=== PATIENT | female | born 1955 | race Two or more races ===

== ENCOUNTER → 2018-03-12 | Outpatient (CLI) | payer MEDICARE ==
[~2018-03-12] MED LIST: CYANOCOBALAMIN (B-12) 1000 MCG/1 ML VIAL IM ONE; CYANOCOBALAMIN (B-12) 1000 MCG/1 ML VIAL ONE; methylPREDNISolone SOD SUCC 125 MG/2 ML VL IV ONE; methylPREDNISolone SOD SUCC 125 MG/2 ML VL ONE
[2018-03-12 10:15] VITALS: BP 138/92
[2018-03-12 11:20] VITALS: BP 154/91
[2018-03-12 12:37] LABS: Basophils # (auto) 0 uL; Basophils % (auto) 0.2 % (0.0-2.0); Eosinophils # (auto) 0 uL; Eosinophils % (auto) 0.4 % (0.0-7.0); Hematocrit 39.1 % (36.0-46.0); Hemoglobin 12.6 g/dL (12.2-16.2); Lymphocytes # (auto) 0.9 uL; Lymphocytes % (auto) 9.8 % (10.0-50.0); Mean Corpuscular Hemoglobin 28.5 pg (28.0-32.0); Mean Corpuscular Hgb Conc. 32.2 g/dL (32.0-36.0); Mean Corpuscular Volume 88.5 fL (80.0-100.0); Monocytes # (auto) 0.6 uL; Monocytes % (auto) 6.5 % (0.0-12.0); Neutrophils # (auto) 7.9 uL; Neutrophils % (auto) 83.1 % (37.0-80.0); Platelet Count (auto) 365 10^3/uL (140-450); Red Blood Cells 4.42 10^6/uL (4.0-5.20); Red Cell Distribution Width 14.4 % (11.8-14.3); White Blood Cell 9.5 10^3/uL (4.4-10.8)
[2018-03-12 13:13] LABS: Albumin 3.5 g/dL (3.4-5.0); Calcium 8.8 mg/dL (8.5-10.1); Magnesium 2.2 mg/dL (1.6-2.6); Potassium 4.3 mmol/L (3.5-5.1)
[2018-03-12 13:14] LABS: BUN/Creatinine Ratio 27.3
[2018-03-12 13:18] LABS: Bilirubin, Total 0.5 mg/dL (0.2-1.0); Total Protein 7.2 g/dL (6.4-8.2)
== END | disposition home or self-care (01) ==
LOC: CHF HDHVI 10:19
PROVIDERS: ATTEND Internal Medicine Cardiovascular Disease
DX: J44.9 Chronic obstructive pulmonary disease, unspecified (principal); R06.02 Shortness of breath; I10 Essential (primary) hypertension; J45.909 Unspecified asthma, uncomplicated; R53.83 Other fatigue; E55.9 Vitamin D deficiency, unspecified
CPT/HCPCS: 36415; 71046; 80053; 82306; 83735; 85025; 96372; 96374; G0463; J2930; J3420

== ENCOUNTER → 2018-04-04 | Outpatient (CLI) | payer MEDICARE ==
[2018-04-04 12:46] LABS: BUN/Creatinine Ratio 25.6; Potassium 4.2 mmol/L (3.5-5.1)
== END | disposition home or self-care (01) ==
LOC: LAB 08:56
PROVIDERS: ATTEND Internal Medicine
DX: K29.70 Gastritis, unspecified, without bleeding (principal); I10 Essential (primary) hypertension; J44.9 Chronic obstructive pulmonary disease, unspecified; E78.00 Pure hypercholesterolemia, unspecified; E11.9 Type 2 diabetes mellitus without complications; E03.9 Hypothyroidism, unspecified
CPT/HCPCS: 36415; 80048

== ENCOUNTER → 2018-11-13 | Outpatient (CLI) | payer MEDICARE | END | disposition home or self-care (01) | LOC: LAB 08:48 | PROVIDERS: ATTEND Internal Medicine Cardiovascular Disease | DX: E03.9 Hypothyroidism, unspecified (principal) | CPT/HCPCS: 36415; 84439; 84443 ==

== ENCOUNTER → 2019-01-13 | Outpatient (CLI) | payer MEDICARE ==
[2019-01-13 16:14] LABS: Urine Blood Negative /uL (Negative); Urine Specific Gravity 1.009 (1.001-1.035)
== END | disposition home or self-care (01) ==
LOC: LAB 11:48
PROVIDERS: ATTEND Internal Medicine Cardiovascular Disease
DX: N39.0 Urinary tract infection, site not specified (principal)
CPT/HCPCS: 81003; 87086

== ENCOUNTER → 2019-02-03 | Outpatient (CLI) | payer MEDICARE ==
[~2019-02-03] MED LIST changes: -CYANOCOBALAMIN (B-12) 1000 MCG/1 ML VIAL IM ONE; -CYANOCOBALAMIN (B-12) 1000 MCG/1 ML VIAL ONE; +IOHEXOL 350 MG/ML 100ML IJ ONE; -methylPREDNISolone SOD SUCC 125 MG/2 ML VL IV ONE; -methylPREDNISolone SOD SUCC 125 MG/2 ML VL ONE
--- NOTE | 2019-02-03 14:11 | NUR ---
PT. TO CLINIC WITH C/O SOB THAT HAS NOT SUBSIDED ALL DAY. PT. SAW DR. MARCOS THIS AM AT 0900 WITH NEW INSTRUCTIONS FOR PT. REFERRAL AND DIAGNOSTIC PROCEDURES. PT. APPEARS ANXIOUS AND TEARFUL. AOX4, PWD WITH NO ACUTE DISTRESS.
[2019-02-03 14:15] VITALS: BP 128/84
--- NOTE | 2019-02-03 14:25 | NUR ---
IV insertion IV access obtained, via clean sterile technique by inserting 20 gauge catheter at after attempt(s). IV secured properly. No trauma to site. Patient tolerated procedure well.LABS SENT.
--- NOTE | 2019-02-03 14:55 | NUR ---
PT. TO AND FROM CT. TOLERATED PROCEDURE WELL. PT. STAES SHE IS FEELING MUCH BETTER. " I THINK I WAS HAVING A PANIC ATTACK" REASSURANCE GIVEN TO PT.
[2019-02-03 15:16] LABS: Basophils # (auto) 0 uL; Basophils % (auto) 0.2 % (0.0-2.0); Eosinophils # (auto) 0 uL; Hemoglobin 12.6 g/dL (12.2-16.2); Lymphocytes # (auto) 0.9 uL; Mean Corpuscular Hemoglobin 28.6 pg (28.0-32.0); Mean Corpuscular Hgb Conc. 32.3 g/dL (32.0-36.0); Mean Corpuscular Volume 88.6 fL (80.0-100.0); Monocytes # (auto) 0.5 uL; Monocytes % (auto) 4.4 % (0.0-12.0); Neutrophils # (auto) 10.3 uL; Neutrophils % (auto) 87.4 % (37.0-80.0); Platelet Count (auto) 398 10^3/uL (140-450); Red Cell Distribution Width 13.7 % (11.8-14.3); White Blood Cell 11.8 10^3/uL (4.4-10.8)
[2019-02-03 15:32] LABS: Calcium 9.1 mg/dL (8.5-10.1); Magnesium 2.4 mg/dL (1.6-2.6)
[2019-02-03 15:47] VITALS: BP 125/83
--- NOTE | 2019-02-03 15:47 | NUR ---
IV removal IV DC'd with sterile technique, catheter fully intact. Pressure dressing applied to site. Patient tolerated procedure well. Discharged with aftercare instructions per MD. NOTE: PT. HAS FOLLOW UP APPT. SUNDAY MORNING WITH DR. MARCOS. EBONI AT TIME OF DISCHARGE. ENCOURAGED PT. TO INCREASE WATER INTAKE FOR NEXT 24 HRS.
== END | disposition home or self-care (01) ==
LOC: CHF HDHVI 14:16
PROVIDERS: ATTEND Internal Medicine Cardiovascular Disease
DX: I70.0 Atherosclerosis of aorta (principal); J84.10 Pulmonary fibrosis, unspecified; E55.9 Vitamin D deficiency, unspecified; D64.9 Anemia, unspecified; I10 Essential (primary) hypertension; M79.7 Fibromyalgia
CPT/HCPCS: 36415; 71260; 80048; 82306; 83735; 85025; G0463; Q9967

== ENCOUNTER → 2019-04-17 | Outpatient (CLI) | payer MEDICARE ==
[2019-04-17 11:58] LABS: Urine Blood TRACE /uL (Negative); Urine Specific Gravity 1.012 (1.001-1.035)
== END | disposition home or self-care (01) ==
LOC: LAB 09:18
PROVIDERS: ATTEND Internal Medicine
DX: N39.0 Urinary tract infection, site not specified (principal)
CPT/HCPCS: 81003

== ENCOUNTER → 2019-05-19 | Outpatient (CLI) | payer MEDICARE ==
[2019-05-19 12:42] LABS: Basophils # (auto) 0 uL; Basophils % (auto) 0.5 % (0.0-2.0); Eosinophils # (auto) 0.1 uL; Eosinophils % (auto) 1.6 % (0.0-7.0); Hematocrit 39.9 % (36.0-46.0); Lymphocytes # (auto) 1.2 uL; Lymphocytes % (auto) 21.4 % (10.0-50.0); Mean Corpuscular Hemoglobin 28.9 pg (28.0-32.0); Mean Corpuscular Hgb Conc. 32.5 g/dL (32.0-36.0); Mean Corpuscular Volume 88.9 fL (80.0-100.0); Monocytes # (auto) 0.5 uL; Monocytes % (auto) 9.5 % (0.0-12.0); Neutrophils # (auto) 3.8 uL; Nucleated Red Blood Cells % 0.2 %; Platelet Count (auto) 353 10^3/uL (140-450); Red Blood Cells 4.49 10^6/uL (4.0-5.20); Red Cell Distribution Width 13.7 % (11.8-14.3); Urine Blood Negative /uL (Negative); Urine Specific Gravity 1.017 (1.001-1.035); White Blood Cell 5.7 10^3/uL (4.4-10.8)
[2019-05-19 13:12] LABS: Potassium 4.2 mmol/L (3.5-5.1)
[2019-05-19 13:14] LABS: Free T4 (Free Thyroxine) 0.97 ng/dL (0.89-1.76)
[2019-05-19 13:29] LABS: Albumin 3.7 g/dL (3.4-5.0); BUN/Creatinine Ratio 20.8; Bilirubin, Total 0.5 mg/dL (0.2-1.0); Calcium 9.7 mg/dL (8.5-10.1)
== END | disposition home or self-care (01) ==
LOC: LAB 08:20
PROVIDERS: ATTEND Internal Medicine
DX: E03.9 Hypothyroidism, unspecified (principal); E55.9 Vitamin D deficiency, unspecified; D51.9 Vitamin B12 deficiency anemia, unspecified; N39.0 Urinary tract infection, site not specified; Z79.899 Other long term (current) drug therapy
CPT/HCPCS: 36415; 80053; 80061; 81003; 82306; 82607; 83036; 84439; 84443; 85025

== ENCOUNTER → 2020-03-15 | Outpatient (CLI) | payer MEDICARE ==
[~2020-03-15] MED LIST changes: +READI-CAT 2 (BARIUM SULF)(VANILLA SMOOTHIE) 450ML ONE
--- NOTE | 2020-03-15 12:10 | NUR ---
PT. TO CLINIC FOR CT ABD PELVIS PER MD ORDER FROM BACK OFFICE. AOX4, PWD.
[2020-03-15 12:15] VITALS: BP 123/74
--- NOTE | 2020-03-15 12:20 | NUR ---
IV insertion IV access obtained, via clean sterile technique by inserting 22G gauge catheter at after attempt(s). IV secured properly. No trauma to site. Patient tolerated procedure well. STAT CREAT. SENT. ADDITIONAL LABS SENT PER MD ORDER.
--- NOTE | 2020-03-15 13:15 | NUR ---
PT. RESTING WITH NO C/O. PENDING STAT LAB RESULTS.
--- NOTE | 2020-03-15 13:30 | NUR ---
PT. AMBULATED TO AND FROM CT. TOLERATED PROCEDURE WELL.
[2020-03-15 13:50] VITALS: BP 128/76
--- NOTE | 2020-03-15 13:50 | NUR ---
IV removal IV DC'd with sterile technique, catheter fully intact. Pressure dressing applied to site. Patient tolerated procedure well. Discharged with aftercare instructions per MD. NOTE: PT. INSTRUCTED TO INCREASE WATER INTAKE FOR NEXT 24 HRS.
[2020-03-15 14:49] LABS: Urine WBC None Seen /hpf (0 - 5)
[2020-03-15 16:06] LABS: Basophils # (auto) 0 10 ^3/uL (0-0.2); Basophils % (auto) 0.5 % (0.0-2.0); Eosinophils # (auto) 0.1 10 ^3/uL (0-0.8); Eosinophils % (auto) 1.7 % (0.0-7.0); Hematocrit 40.2 % (36.0-46.0); Hemoglobin 12.9 g/dL (12.2-16.2); Lymphocytes # (auto) 1.6 10 ^3/uL (0.4-5.4); Lymphocytes % (auto) 20.4 % (10.0-50.0); Mean Corpuscular Hemoglobin 28.2 pg (28.0-32.0); Mean Corpuscular Volume 88.3 fL (80.0-100.0); Monocytes # (auto) 0.8 10 ^3/uL (0-1.3); Monocytes % (auto) 10.7 % (0.0-12.0); Neutrophils # (auto) 5.1 10 ^3/uL (1.6-8.6); Neutrophils % (auto) 66.7 % (37.0-80.0); Nucleated Red Blood Cells % 0.1 %; Platelet Count (auto) 381 10^3/uL (140-450); Red Blood Cells 4.55 10^6/uL (4.0-5.20); Red Cell Distribution Width 13.2 % (11.8-14.3); White Blood Cell 7.7 10^3/uL (4.4-10.8)
[2020-03-15 16:08] LABS: Urine Bacteria NONE SEEN /hpf (None Seen); Urine Blood Negative /uL (Negative); Urine Specific Gravity 1.008 (1.001-1.035)
[2020-03-15 16:20] LABS: Albumin 3.7 g/dL (3.4-5.0); Calcium 9.2 mg/dL (8.5-10.1); Potassium 3.3 mmol/L (3.5-5.1)
[2020-03-15 16:25] LABS: BUN/Creatinine Ratio 23.6; Bilirubin, Total 0.2 mg/dL (0.2-1.0); Total Protein 7.5 g/dL (6.4-8.2)
== END | disposition home or self-care (01) ==
LOC: Rad HDHVI 12:03
PROVIDERS: ATTEND Internal Medicine
DX: S22.089A Unspecified fracture of T11-T12 vertebra, initial encounter for closed fracture (principal); R94.4 Abnormal results of kidney function studies; E78.5 Hyperlipidemia, unspecified; N39.0 Urinary tract infection, site not specified; D64.9 Anemia, unspecified; I10 Essential (primary) hypertension; K57.30 Diverticulosis of large intestine without perforation or abscess without bleeding; I70.0 Atherosclerosis of aorta; Z90.49 Acquired absence of other specified parts of digestive tract; X58.XXXA Exposure to other specified factors, initial encounter; Y93.89 Activity, other specified; Y92.89 Other specified places as the place of occurrence of the external cause; Y99.8 Other external cause status
CPT/HCPCS: 36415; 74177; 80053; 80061; 81001; 82565; 85025; 87086; G0463; Q9967

== ENCOUNTER → 2020-03-31 | Outpatient (CLI) | payer MEDICARE ==
[2020-03-31 12:11] LABS: BUN/Creatinine Ratio 18.2; Potassium 4.4 mmol/L (3.5-5.1)
== END | disposition home or self-care (01) ==
LOC: LAB 08:13
PROVIDERS: ATTEND Internal Medicine
DX: E87.6 Hypokalemia (principal); I10 Essential (primary) hypertension
CPT/HCPCS: 36415; 80048

== ENCOUNTER → 2020-04-06 | Outpatient (CLI) | payer MEDICARE | END | disposition home or self-care (01) | LOC: LAB 10:33 | PROVIDERS: ATTEND Internal Medicine | DX: M10.9 Gout, unspecified (principal) | CPT/HCPCS: 36415; 84550 ==

== ENCOUNTER → 2020-07-05 | Outpatient (CLI) | payer MEDICARE | END | disposition home or self-care (01) | LOC: Rad HDHVI 11:03 | PROVIDERS: ATTEND Internal Medicine Cardiovascular Disease | DX: M10.9 Gout, unspecified (principal) ==

== ENCOUNTER → 2020-09-10 | Outpatient (CLI) | payer MEDICARE ==
--- NOTE | 2020-09-10 10:35 | NUR ---
PT ARRIVED TO [facility] PT ARRIVED TO [facility] FOR CT. PATIENT IS ALERT AND AWAKE WITH EVEN AND UNLABORED RESPIRATIONS. PATIENT ALERT AND AWAKE WITH EVEN AND UNLABORED RESPIRATIONS. PATIENT IS ON RA WITH NO S/S OF DISTRESS/SOB OR PAIN NOTED. VSS. WILL CARRY OUT MD ORDERS. Addendum: 09/10/20 at 1213 by VINCE MENON RN WRONG PATIENT
--- NOTE | 2020-09-10 10:38 | NUR ---
IV insertion IV access obtained by Glo SLADE, via clean sterile technique by inserting [20] gauge catheter at [LAC] after [1] attempt(s). IV secured properly. No trauma to site. Patient tolerated procedure well.
== END | disposition home or self-care (01) ==
LOC: Rad HDHVI 10:42
PROVIDERS: ATTEND Internal Medicine
DX: I70.0 Atherosclerosis of aorta (principal); Z01.812 Encounter for preprocedural laboratory examination
CPT/HCPCS: 71046

== ENCOUNTER → 2020-09-13 | Outpatient (CLI) | payer MEDICARE | END | disposition home or self-care (01) | LOC: Rad HDHVI 14:38 | PROVIDERS: ATTEND Internal Medicine | DX: J44.9 Chronic obstructive pulmonary disease, unspecified (principal); F41.9 Anxiety disorder, unspecified | CPT/HCPCS: 93306 ==

== ENCOUNTER → 2020-09-14 | Outpatient (CLI) | payer MEDICARE ==
[~2020-09-14] MED LIST changes: +ALBU108A5 IN; +AMLO5TAB15 PO; +ASPI81CH59 PO; +ATOR20TA50 PO; +BUPRTAB3 PO; +CYCL10TA6 PO; +DULO60CA PO; +FAMO-12 PO; +FER325T PO; +GABA-339 PO; -IOHEXOL 350 MG/ML 100ML IJ ONE; +LANS30CA57 PO; +LEVO125T7 PO; +MELA3TAB27 PO; +MONT10TA34 PO; -READI-CAT 2 (BARIUM SULF)(VANILLA SMOOTHIE) 450ML ONE
[2020-09-14 11:59] LABS: Basophils # (auto) 0 10 ^3/uL (0-0.2); Basophils % (auto) 0.7 % (0.0-2.0); Eosinophils # (auto) 0.1 10 ^3/uL (0-0.8); Eosinophils % (auto) 2.2 % (0.0-7.0); Hematocrit 39.4 % (36.0-46.0); Lymphocytes # (auto) 1.5 10 ^3/uL (0.4-5.4); Lymphocytes % (auto) 23.2 % (10.0-50.0); Mean Corpuscular Hemoglobin 28.9 pg (28.0-32.0); Mean Corpuscular Hgb Conc. 32.9 g/dL (32.0-36.0); Monocytes # (auto) 0.6 10 ^3/uL (0-1.3); Monocytes % (auto) 9.7 % (0.0-12.0); Neutrophils # (auto) 4.2 10 ^3/uL (1.6-8.6); Neutrophils % (auto) 64.2 % (37.0-80.0); Platelet Count (auto) 355 10^3/uL (140-450); Red Blood Cells 4.48 10^6/uL (4.0-5.20); Red Cell Distribution Width 13.9 % (11.8-14.3); White Blood Cell 6.6 10^3/uL (4.4-10.8)
[2020-09-14 12:09] LABS: Urine Blood Negative /uL (Negative); Urine Specific Gravity 1.022 (1.001-1.035)
[2020-09-14 12:11] LABS: BUN/Creatinine Ratio 17.6; INR 0.93 (0.9-1.15); Partial Thromboplastin Time 28.4 sec (23.0-31.2); Potassium 3.9 mmol/L (3.5-5.1)
== END | disposition home or self-care (01) ==
LOC: LAB 09:02
PROVIDERS: ATTEND Internal Medicine
DX: Z01.812 Encounter for preprocedural laboratory examination (principal); I70.0 Atherosclerosis of aorta; J44.9 Chronic obstructive pulmonary disease, unspecified; Z79.01 Long term (current) use of anticoagulants
CPT/HCPCS: 36415; 80048; 81003; 85025; 85610; 85730

== ENCOUNTER 2020-11-01 14:21 | Inpatient (IN) | payer MEDICARE ==
[~2020-11-01] VITALS: Ht 165.1 cm; Wt 79.9 kg
[2020-11-01 15:47] LABS: Albumin 2.8 g/dL (3.4-5.0); Anion Gap 8 (5-15); Blood Urea Nitrogen 20 mg/dL (7-18); Calcium 8.8 mg/dL (8.5-10.1); Carbon Dioxide 28 mmol/L (21-32); Chloride 97 mmol/L (98-107); Glucose 95 mg/dL (74-106); Potassium 3.9 mmol/L (3.5-5.1); Sodium 133 mmol/L (136-145)
[2020-11-01 15:57] LABS: Alanine Aminotransferase 49 U/L (13-56); Alkaline Phosphatase 103 U/L (45-117); Aspartate Aminotransferase 45 U/L (15-37); BUN/Creatinine Ratio 29.4; Bilirubin, Total 0.4 mg/dL (0.2-1.0); GFR African American 111 mL/min; GFR Non-African American 92 mL/min; Total Protein 7.6 g/dL (6.4-8.2)
[2020-11-01 15:58] LABS: CRP High Sensitivity 15.1 mg/dL (< 0.3)
[2020-11-01 16:15] LABS: Basophils # (auto) 0 10 ^3/uL (0-0.2); Basophils % (auto) 0.1 % (0.0-2.0); Eosinophils # (auto) 0 10 ^3/uL (0-0.8); Lymphocytes # (auto) 0.6 10 ^3/uL (0.4-5.4); Monocytes # (auto) 0.8 10 ^3/uL (0-1.3); Neutrophils # (auto) 10.5 10 ^3/uL (1.6-8.6); White Blood Cell 11.9 10^3/uL (4.4-10.8)
[2020-11-01 16:17] LABS: Hematocrit 33.9 % (36.0-46.0); Hemoglobin 11.4 g/dL (12.2-16.2); Lymphocytes % (auto) 5.4 % (10.0-50.0); Mean Corpuscular Hemoglobin 28.9 pg (28.0-32.0); Mean Corpuscular Hgb Conc. 33.7 g/dL (32.0-36.0); Monocytes % (auto) 6.5 % (0.0-12.0); Red Blood Cells 3.94 10^6/uL (4.0-5.20); Red Cell Distribution Width 14.5 % (11.8-14.3)
[2020-11-01 17:19] LABS: Platelet Count (auto) 757 10^3/uL (140-450)
[2020-11-01] MEDS ORDERED: ASCORBIC ACID 500 MG TAB PO ONE (17:30)
[2020-11-01] MEDS ORDERED: ENOXAPARIN SOD 100 MG/1 ML SYRINGE SC ONE (17:30)
[2020-11-01] MEDS ORDERED: ZINC SULFATE 220mg CAP or TAB PO ONE (17:30)
[2020-11-01] MEDS ORDERED: AZITHROMYCIN 500MG/ 250ML 250 ML IV ONE (17:30)
[2020-11-01] MEDS ORDERED: methylPREDNISolone SOD SUCC 125 MG/2 ML VL IV ONE (17:30)
[2020-11-01] MEDS ORDERED: methylPREDNISolone SOD SUCC 125 MG/2 ML VL ONE (17:53)
[2020-11-01] MEDS ORDERED: MORPHINE SULF INJ 2 MG/ML SYRINGE 1ML IV PRN ×2 (19:00)
[2020-11-01] MEDS ORDERED: ONDANSETRON HCL 4 MG/2 ML VIAL IV PRN (19:00)
[2020-11-01] MEDS ORDERED: REMDESIVIR PER PHARMACY 0 ML IV SCH (19:00)
[2020-11-01] MEDS ORDERED: NITROGLYCERIN 0.4 MG SL TAB SL PRN (19:00)
[2020-11-01] MEDS ORDERED: HYDROcodone-ACET 5/325MG TAB PO PRN (19:00)
[2020-11-01] MEDS ORDERED: ACETAMINOPHEN 500 MG TAB PO PRN (19:00)
[2020-11-01 21:24] LABS: Magnesium 2.8 mg/dL (1.6-2.6)
[2020-11-01] MEDS ORDERED: BUDESONIDE (INHALATION) 0.5 MG/2 ML NEB NEB SCH (22:00)
[2020-11-01] MEDS: BUDESONIDE (INHALATION) 180 MCG IH IN SCH (22:00)
[2020-11-01 22:40] LABS: Urine Amorphous Crystal FEW /hpf (None Seen); Urine Bacteria FEW /hpf (None Seen); Urine Blood Negative /uL (Negative); Urine Mucus FEW (None Seen); Urine Specific Gravity 1.025 (1.001-1.035); Urine WBC 6 /hpf (0 - 5)
[2020-11-02] MEDS: ENOXAPARIN SOD 40 MG/0.4 ML SYRINGE SC SCH ×2 (00:51→08:59)
[2020-11-02] MEDS: cefTRIAXone 1GM/50ML D5W 50 ML IV SCH (08:57)
[2020-11-02] MEDS: DexAMETHasone SOD PHOS 10MG/1ML VIAL INJ IV SCH (08:58)
[2020-11-02] MEDS: ZINC SULFATE 220mg CAP or TAB PO SCH (08:58)
[2020-11-02] MEDS: ASCORBIC ACID 1,000 MG TAB PO SCH (08:58)
[2020-11-02] MEDS: FAMOTIDINE 20 MG TAB PO SCH (08:58)
[2020-11-02] MEDS: CHOLECALCIFEROL (VITD3) 2,000 UNIT CAP PO SCH (08:59)
[2020-11-02 09:55] LABS: Albumin 2.7 g/dL (3.4-5.0); Calcium 9.1 mg/dL (8.5-10.1); Potassium 3.8 mmol/L (3.5-5.1)
[2020-11-02 09:58] LABS: BUN/Creatinine Ratio 33.3; Bilirubin, Total 0.3 mg/dL (0.2-1.0); Total Protein 7.5 g/dL (6.4-8.2)
[2020-11-02] MEDS: AZITHROMYCIN 500MG/ 250ML 250 ML IV SCH (10:29)
[2020-11-02] MEDS ORDERED: REMDESIVIR 200 MG in NS 210ml LOADING DOSE ADULT IV ONE (15:00)
[2020-11-02] MEDS ORDERED: FUROSEMIDE 40 MG/4 ML VIAL IV ONE (16:30)
[2020-11-02] MEDS ORDERED: POTASSIUM CHL 10 Meq TABLET PO ONE (16:30)
[2020-11-02 20:16] VITALS: BP 122/69
[2020-11-02] MEDS: ENOXAPARIN SOD 100 MG/1 ML SYRINGE SC SCH (21:35)
[2020-11-02 22:00] VITALS: BP 122/69
[2020-11-02] MEDS: ALBUTEROL SULF HFA 90MCG INH 200DOSE IN PRN (22:04)
[2020-11-02] MEDS: BUDESONIDE (INHALATION) 180 MCG IH IN SCH (22:04)
[2020-11-03 05:00] VITALS: BP 122/76
[2020-11-03] MEDS ORDERED: LEVO125T7 PO (06:29)
[2020-11-03] MEDS ORDERED: LANS30CA57 PO (06:29)
[2020-11-03] MEDS ORDERED: DULO60CA PO (06:29)
[2020-11-03] MEDS ORDERED: FAMO-12 PO (06:29)
[2020-11-03] MEDS ORDERED: MELA3TAB27 PO (06:29)
[2020-11-03] MEDS ORDERED: GABA-339 PO (06:29)
[2020-11-03] MEDS ORDERED: AMLO5TAB15 PO (06:29)
[2020-11-03] MEDS ORDERED: CYCL10TA6 PO (06:29)
[2020-11-03] MEDS ORDERED: BUPRTAB3 PO (06:29)
[2020-11-03] MEDS ORDERED: MONT10TA34 PO (06:29)
[2020-11-03 07:18] LABS: Basophils # (auto) 0 10 ^3/uL (0-0.2); Basophils % (auto) 0.1 % (0.0-2.0); Eosinophils # (auto) 0 10 ^3/uL (0-0.8); Hematocrit 32.9 % (36.0-46.0); Hemoglobin 10.5 g/dL (12.2-16.2); Mean Corpuscular Hgb Conc. 31.8 g/dL (32.0-36.0); Nucleated Red Blood Cells % 0.1 %; White Blood Cell 13.5 10^3/uL (4.4-10.8)
[2020-11-03 07:23] LABS: Eosinophils % (auto) 0.1 % (0.0-7.0); Lymphocytes # (auto) 1.7 10 ^3/uL (0.4-5.4); Lymphocytes % (auto) 12.5 % (10.0-50.0); Mean Corpuscular Volume 84.8 fL (80.0-100.0); Monocytes % (auto) 7.2 % (0.0-12.0); Neutrophils # (auto) 10.8 10 ^3/uL (1.6-8.6); Neutrophils % (auto) 80.1 % (37.0-80.0); Red Blood Cells 3.88 10^6/uL (4.0-5.20); Red Cell Distribution Width 14.4 % (11.8-14.3)
[2020-11-03 07:29] LABS: Potassium 3.7 mmol/L (3.5-5.1)
[2020-11-03 07:37] LABS: BUN/Creatinine Ratio 36.8; Calcium 8.7 mg/dL (8.5-10.1)
[2020-11-03 08:00] VITALS: BP 119/68
[2020-11-03 08:14] LABS: Platelet Count (auto) 789 10^3/uL (140-450)
[2020-11-03] MEDS: BUDESONIDE (INHALATION) 180 MCG IH IN SCH ×2 (10:00→23:11)
[2020-11-03] MEDS: DexAMETHasone SOD PHOS 10MG/1ML VIAL INJ IV SCH (11:20)
[2020-11-03] MEDS: FUROSEMIDE 40 MG/4 ML VIAL IV SCH (11:21)
[2020-11-03] MEDS: AZITHROMYCIN 500MG/ 250ML 250 ML IV SCH (11:22)
[2020-11-03] MEDS: ZINC SULFATE 220mg CAP or TAB PO SCH (11:23)
[2020-11-03] MEDS: POTASSIUM CHL 10 Meq TABLET PO SCH (11:24)
[2020-11-03] MEDS: FAMOTIDINE 20 MG TAB PO SCH (11:24)
[2020-11-03] MEDS: ASCORBIC ACID 1,000 MG TAB PO SCH (11:25)
[2020-11-03] MEDS: CHOLECALCIFEROL (VITD3) 2,000 UNIT CAP PO SCH (11:26)
[2020-11-03] MEDS: ENOXAPARIN SOD 100 MG/1 ML SYRINGE SC SCH ×2 (11:27→21:13)
[2020-11-03 12:00] VITALS: BP 108/68
[2020-11-03] MEDS ORDERED: ASPirin 81 mg TAB PO ONE (12:00)
[2020-11-03] MEDS: cefTRIAXone 1GM/50ML D5W 50 ML IV SCH (12:12)
[2020-11-03] MEDS ORDERED: LACTULOSE 20Gm/30ML SOLN PO ONE (13:45)
[2020-11-03] MEDS: ALBUTEROL SULF HFA 90MCG INH 200DOSE IN PRN ×2 (14:15→23:11)
[2020-11-03] MEDS ORDERED: REMDESIVIR 100 MG in SODIUM CHL 0.9% 250 ML IV SCH (15:00)
[2020-11-03 17:00] VITALS: BP 121/86
[2020-11-03 22:00] VITALS: BP 124/72
[2020-11-04] VITALS (8 sets, daily range): BP systolic 115–142; BP diastolic 68–87
[2020-11-04 07:03] LABS: Potassium 4.3 mmol/L (3.5-5.1)
[2020-11-04 07:12] LABS: Albumin 2.7 g/dL (3.4-5.0); BUN/Creatinine Ratio 40.4; Bilirubin, Total 0.2 mg/dL (0.2-1.0); Calcium 8.9 mg/dL (8.5-10.1); Total Protein 7.1 g/dL (6.4-8.2)
[2020-11-04 07:16] LABS: Hematocrit 34.8 % (36.0-46.0); Hemoglobin 11.3 g/dL (12.2-16.2); Mean Corpuscular Hemoglobin 27.4 pg (28.0-32.0); Mean Corpuscular Hgb Conc. 32.4 g/dL (32.0-36.0); Mean Corpuscular Volume 84.7 fL (80.0-100.0); Red Blood Cells 4.11 10^6/uL (4.0-5.20); Red Cell Distribution Width 14.5 % (11.8-14.3); White Blood Cell 10.7 10^3/uL (4.4-10.8)
[2020-11-04] MEDS: BUDESONIDE (INHALATION) 180 MCG IH IN SCH ×2 (07:47→20:13)
[2020-11-04] MEDS: ALBUTEROL SULF HFA 90MCG INH 200DOSE IN PRN ×2 (07:47→20:12)
[2020-11-04 08:00] LABS: Basophils % (manual) 0 (0.0-2.0); Blast Cells 0; Eosinophils % (manual) 0 (0-7); Myelocytes % 0; Platelet Count (auto) 835 10^3/uL (140-450); Promyelocytes % 0; Reactive Lymphocytes 0
[2020-11-04 09:02] LABS: Band Neutrophils % (manual) 5; Lymphocytes % (manual) 10 (10.0-50.0); Metamyelocytes % 1; Monocytes % (manual) 4 (0-12)
[2020-11-04] MEDS: cefTRIAXone 1GM/50ML D5W 50 ML IV SCH (09:53)
[2020-11-04] MEDS: LACTULOSE 20Gm/30ML SOLN PO SCH (09:53)
[2020-11-04] MEDS: CHOLECALCIFEROL (VITD3) 2,000 UNIT CAP PO SCH (09:53)
[2020-11-04] MEDS: ASPirin 81 mg TAB PO SCH (09:54)
[2020-11-04] MEDS: ASCORBIC ACID 1,000 MG TAB PO SCH (09:54)
[2020-11-04] MEDS: ZINC SULFATE 220mg CAP or TAB PO SCH (09:54)
[2020-11-04] MEDS: FAMOTIDINE 20 MG TAB PO SCH (09:54)
[2020-11-04] MEDS: POTASSIUM CHL 10 Meq TABLET PO SCH (09:54)
[2020-11-04] MEDS: DexAMETHasone SOD PHOS 10MG/1ML VIAL INJ IV SCH (09:55)
[2020-11-04] MEDS: ENOXAPARIN SOD 80 MG/0.8ML SYRINGE SC SCH ×2 (09:55→22:05)
[2020-11-04] MEDS: FUROSEMIDE 40 MG/4 ML VIAL IV SCH (10:07)
[2020-11-04] MEDS: AZITHROMYCIN 500MG/ 250ML 250 ML IV SCH (11:15)
[2020-11-04] MEDS: SODIUM FERR GLUC 62.5MG/5ML 125 MG in SODIUM CHL 0.9% 100 ML IV SCH (13:54)
[2020-11-04] MEDS ORDERED: REMDESIVIR 100 MG in SODIUM CHL 0.9% 250 ML IV SCH (17:00)
[2020-11-05 05:00] VITALS: BP 136/75
[2020-11-05 06:09] LABS: White Blood Cell 12.6 10^3/uL (4.4-10.8)
[2020-11-05 06:11] LABS: Hematocrit 35.4 % (36.0-46.0); Hemoglobin 11.2 g/dL (12.2-16.2); Mean Corpuscular Hemoglobin 26.9 pg (28.0-32.0); Mean Corpuscular Hgb Conc. 31.6 g/dL (32.0-36.0); Mean Corpuscular Volume 85.1 fL (80.0-100.0); Red Blood Cells 4.16 10^6/uL (4.0-5.20); Red Cell Distribution Width 14.6 % (11.8-14.3)
[2020-11-05 06:30] LABS: Calcium 9.1 mg/dL (8.5-10.1); Potassium 3.7 mmol/L (3.5-5.1)
[2020-11-05 06:33] LABS: Albumin 3.1 g/dL (3.4-5.0); BUN/Creatinine Ratio 34.5
[2020-11-05 06:36] LABS: Bilirubin, Total 0.3 mg/dL (0.2-1.0); Total Protein 7.4 g/dL (6.4-8.2)
[2020-11-05 08:09] LABS: Platelet Count (auto) 916 10^3/uL (140-450)
[2020-11-05 08:12] LABS: Basophils % (manual) 0 (0.0-2.0); Blast Cells 0; Eosinophils % (manual) 0 (0-7); Myelocytes % 0; Promyelocytes % 0; Reactive Lymphocytes 0
[2020-11-05 09:00] VITALS: BP 147/79
[2020-11-05] MEDS: cefTRIAXone 1GM/50ML D5W 50 ML IV SCH (09:09)
[2020-11-05] MEDS: AZITHROMYCIN 500MG/ 250ML 250 ML IV SCH (09:09)
[2020-11-05] MEDS: LACTULOSE 20Gm/30ML SOLN PO SCH (09:10)
[2020-11-05] MEDS: CHOLECALCIFEROL (VITD3) 2,000 UNIT CAP PO SCH (09:10)
[2020-11-05] MEDS: FUROSEMIDE 40 MG/4 ML VIAL IV SCH (09:10)
[2020-11-05] MEDS: DexAMETHasone SOD PHOS 10MG/1ML VIAL INJ IV SCH (09:10)
[2020-11-05] MEDS: ENOXAPARIN SOD 80 MG/0.8ML SYRINGE SC SCH ×2 (09:11→22:05)
[2020-11-05] MEDS: FAMOTIDINE 20 MG TAB PO SCH (09:11)
[2020-11-05] MEDS: POTASSIUM CHL 10 Meq TABLET PO SCH (09:11)
[2020-11-05] MEDS: ZINC SULFATE 220mg CAP or TAB PO SCH (09:11)
[2020-11-05] MEDS: ASPirin 81 mg TAB PO SCH (09:12)
[2020-11-05] MEDS: ASCORBIC ACID 1,000 MG TAB PO SCH (09:12)
[2020-11-05 09:16] LABS: Band Neutrophils % (manual) 2; Lymphocytes % (manual) 33 (10.0-50.0); Metamyelocytes % 1; Monocytes % (manual) 9 (0-12)
[2020-11-05] MEDS: BUDESONIDE (INHALATION) 180 MCG IH IN SCH ×2 (10:00→21:04)
[2020-11-05] MEDS: SODIUM FERR GLUC 62.5MG/5ML 125 MG in SODIUM CHL 0.9% 100 ML IV SCH (12:00)
[2020-11-05 13:00] VITALS: BP 110/70
[2020-11-05] MEDS: REMDESIVIR 100 MG in SODIUM CHL 0.9% 250 ML IV SCH (15:00)
[2020-11-05] MEDS: ALBUTEROL SULF HFA 90MCG INH 200DOSE IN PRN ×2 (16:33→22:49)
[2020-11-05 17:00] VITALS: BP 121/69
[2020-11-05 22:00] VITALS: BP 128/76
[2020-11-06 06:05] VITALS: BP 128/76
[2020-11-06 09:00] VITALS: BP 134/77
[2020-11-06] MEDS: cefTRIAXone 1GM/50ML D5W 50 ML IV SCH (09:00)
[2020-11-06] MEDS: DexAMETHasone SOD PHOS 10MG/1ML VIAL INJ IV SCH (09:45)
[2020-11-06] MEDS: FUROSEMIDE 40 MG/4 ML VIAL IV SCH (09:46)
[2020-11-06] MEDS: LACTULOSE 20Gm/30ML SOLN PO SCH (09:46)
[2020-11-06] MEDS: AZITHROMYCIN 500MG/ 250ML 250 ML IV SCH (09:46)
[2020-11-06] MEDS: ASPirin 81 mg TAB PO SCH (09:46)
[2020-11-06] MEDS: POTASSIUM CHL 10 Meq TABLET PO SCH (09:47)
[2020-11-06] MEDS: ZINC SULFATE 220mg CAP or TAB PO SCH (09:47)
[2020-11-06] MEDS: CHOLECALCIFEROL (VITD3) 2,000 UNIT CAP PO SCH (09:47)
[2020-11-06] MEDS: FAMOTIDINE 20 MG TAB PO SCH (09:47)
[2020-11-06] MEDS: ASCORBIC ACID 1,000 MG TAB PO SCH (09:47)
[2020-11-06] MEDS: ENOXAPARIN SOD 80 MG/0.8ML SYRINGE SC SCH ×2 (09:47→21:47)
[2020-11-06] MEDS: BUDESONIDE (INHALATION) 180 MCG IH IN SCH ×2 (10:00→20:51)
[2020-11-06 10:48] LABS: Basophils # (auto) 0 10 ^3/uL (0-0.2); Eosinophils # (auto) 0 10 ^3/uL (0-0.8); Eosinophils % (auto) 0.3 % (0.0-7.0); Mean Corpuscular Hemoglobin 27.2 pg (28.0-32.0); Monocytes # (auto) 0.9 10 ^3/uL (0-1.3); Monocytes % (auto) 6.3 % (0.0-12.0); Red Cell Distribution Width 14.7 % (11.8-14.3)
[2020-11-06 10:50] LABS: Basophils % (auto) 0.1 % (0.0-2.0); Hematocrit 36.4 % (36.0-46.0); Hemoglobin 11.8 g/dL (12.2-16.2); Lymphocytes # (auto) 1.6 10 ^3/uL (0.4-5.4); Lymphocytes % (auto) 11.5 % (10.0-50.0); Mean Corpuscular Hgb Conc. 32.5 g/dL (32.0-36.0); Mean Corpuscular Volume 83.7 fL (80.0-100.0); Neutrophils # (auto) 11.3 10 ^3/uL (1.6-8.6); Neutrophils % (auto) 81.8 % (37.0-80.0); Red Blood Cells 4.35 10^6/uL (4.0-5.20); White Blood Cell 13.8 10^3/uL (4.4-10.8)
[2020-11-06 11:15] LABS: Platelet Count (auto) 901 10^3/uL (140-450)
[2020-11-06] MEDS: SODIUM FERR GLUC 62.5MG/5ML 125 MG in SODIUM CHL 0.9% 100 ML IV SCH (11:42)
[2020-11-06 13:11] VITALS: BP 124/72
[2020-11-06] MEDS: REMDESIVIR 100 MG in SODIUM CHL 0.9% 250 ML IV SCH (15:00)
[2020-11-06 15:38] LABS: Anion Gap 8 (5-15); Carbon Dioxide 27 mmol/L (21-32); Chloride 99 mmol/L (98-107); Glucose 136 mg/dL (74-106); Potassium 3.3 mmol/L (3.5-5.1); Sodium 134 mmol/L (136-145)
[2020-11-06 15:39] LABS: Alanine Aminotransferase 165 U/L (13-56); Alkaline Phosphatase 114 U/L (45-117); Aspartate Aminotransferase 83 U/L (15-37); BUN/Creatinine Ratio 24.4; Bilirubin, Total 0.2 mg/dL (0.2-1.0); Blood Urea Nitrogen 20 mg/dL (7-18); Calcium 9.3 mg/dL (8.5-10.1); GFR African American 90 mL/min; GFR Non-African American 74 mL/min
[2020-11-06 15:40] LABS: Albumin 3.1 g/dL (3.4-5.0); Total Protein 7.7 g/dL (6.4-8.2)
[2020-11-06 17:19] VITALS: BP 138/86
[2020-11-06] MEDS: ALBUTEROL SULF HFA 90MCG INH 200DOSE IN PRN (20:51)
[2020-11-06 21:00] VITALS: BP 139/68
[2020-11-07 05:00] VITALS: BP 129/80
[2020-11-07 05:10] VITALS: BP 129/80
[2020-11-07 07:04] LABS: Hemoglobin 11.9 g/dL (12.2-16.2)
[2020-11-07 07:06] LABS: Hematocrit 36.1 % (36.0-46.0); Mean Corpuscular Hemoglobin 27.7 pg (28.0-32.0); Mean Corpuscular Hgb Conc. 32.9 g/dL (32.0-36.0); Mean Corpuscular Volume 84.2 fL (80.0-100.0); Red Blood Cells 4.28 10^6/uL (4.0-5.20); Red Cell Distribution Width 14.4 % (11.8-14.3); White Blood Cell 14.4 10^3/uL (4.4-10.8)
[2020-11-07] MEDS: ALBUTEROL SULF HFA 90MCG INH 200DOSE IN PRN (07:25)
[2020-11-07] MEDS: BUDESONIDE (INHALATION) 180 MCG IH IN SCH (07:25)
[2020-11-07 07:29] LABS: Platelet Count (auto) 869 10^3/uL (140-450)
[2020-11-07 07:30] LABS: Basophils % (manual) 0 (0.0-2.0); Blast Cells 0; Eosinophils % (manual) 0 (0-7); Promyelocytes % 0; Reactive Lymphocytes 0
[2020-11-07 07:36] LABS: BUN/Creatinine Ratio 29.7; Calcium 9.4 mg/dL (8.5-10.1); Potassium 4.5 mmol/L (3.5-5.1)
[2020-11-07 08:00] VITALS: BP 130/97
[2020-11-07] MEDS: cefTRIAXone 1GM/50ML D5W 50 ML IV SCH (08:05)
[2020-11-07 09:00] VITALS: BP 130/97
[2020-11-07] MEDS: AZITHROMYCIN 500MG/ 250ML 250 ML IV SCH (10:00)
[2020-11-07] MEDS: DexAMETHasone SOD PHOS 10MG/1ML VIAL INJ IV SCH (10:30)
[2020-11-07] MEDS: LACTULOSE 20Gm/30ML SOLN PO SCH (10:31)
[2020-11-07] MEDS: FUROSEMIDE 40 MG/4 ML VIAL IV SCH (10:31)
[2020-11-07] MEDS: ASPirin 81 mg TAB PO SCH (10:31)
[2020-11-07] MEDS: POTASSIUM CHL 10 Meq TABLET PO SCH (10:32)
[2020-11-07] MEDS: ZINC SULFATE 220mg CAP or TAB PO SCH (10:32)
[2020-11-07] MEDS: FAMOTIDINE 20 MG TAB PO SCH (10:33)
[2020-11-07] MEDS: CHOLECALCIFEROL (VITD3) 2,000 UNIT CAP PO SCH (10:33)
[2020-11-07] MEDS: ASCORBIC ACID 1,000 MG TAB PO SCH (10:33)
[2020-11-07] MEDS: ENOXAPARIN SOD 80 MG/0.8ML SYRINGE SC SCH (10:34)
[2020-11-07 13:00] VITALS: BP 119/80
[2020-11-07 13:39] LABS: Band Neutrophils % (manual) 1; Lymphocytes % (manual) 27 (10.0-50.0); Metamyelocytes % 1; Monocytes % (manual) 8 (0-12); Myelocytes % 1
[2020-11-07] MEDS ORDERED: ATOR20TA50 PO (14:30)
[2020-11-07] MEDS ORDERED: LEVO125T7 PO (14:30)
[2020-11-07] MEDS ORDERED: FAMO-12 PO (14:30)
[2020-11-07] MEDS ORDERED: BUPRTAB3 PO (14:30)
[2020-11-07] MEDS ORDERED: ASPI81CH59 PO (14:30)
[2020-11-07] MEDS ORDERED: CYCL10TA6 PO (14:30)
[2020-11-07] MEDS ORDERED: MELA3TAB27 PO (14:30)
[2020-11-07] MEDS ORDERED: ALBU108A5 IN (14:30)
[2020-11-07] MEDS ORDERED: MONT10TA34 PO (14:30)
[2020-11-07] MEDS ORDERED: FER325T PO (14:30)
[2020-11-07] MEDS ORDERED: GABA-339 PO (14:30)
[2020-11-07] MEDS ORDERED: LANS30CA57 PO (14:30)
[2020-11-07] MEDS ORDERED: AMLO5TAB15 PO (14:30)
[2020-11-07] MEDS ORDERED: DULO60CA PO (14:30)
[2020-11-07 17:00] VITALS: BP 138/78
== END 2020-11-07 18:00 | disposition home or self-care (01) | DRG 177 ==
LOC: ER 14:21 → EDBD 14:21 → OVERFLOW 19:00 → TELE-WESTW 11-02 20:45
PROVIDERS: ADMIT Nurse Practitioner Acute Care; ATTEND Internal Medicine
PROC: XW033E5 Introduction of Remdesivir Anti-infective into Peripheral Vein, Percutaneous Approach, New Technology Group 5 (ICD-10-PCS; principal; 2020-11-01)
PROC: XW13325 Transfusion of Convalescent Plasma (Nonautologous) into Peripheral Vein, Percutaneous Approach, New Technology Group 5 (ICD-10-PCS; 2020-11-04)
DX: U07.1 COVID-19 (principal); J96.01 Acute respiratory failure with hypoxia; J12.89 Other viral pneumonia; N17.0 Acute kidney failure with tubular necrosis; D68.59 Other primary thrombophilia; E44.0 Moderate protein-calorie malnutrition; J44.0 Chronic obstructive pulmonary disease with (acute) lower respiratory infection; I10 Essential (primary) hypertension; Z68.29 Body mass index [BMI] 29.0-29.9, adult; E03.9 Hypothyroidism, unspecified; F32.9 Major depressive disorder, single episode, unspecified; D47.3 Essential (hemorrhagic) thrombocythemia; D64.9 Anemia, unspecified; G62.9 Polyneuropathy, unspecified; K21.9 Gastro-esophageal reflux disease without esophagitis; K59.04 Chronic idiopathic constipation; K29.70 Gastritis, unspecified, without bleeding; M19.90 Unspecified osteoarthritis, unspecified site; G47.00 Insomnia, unspecified; E87.6 Hypokalemia; Z80.9 Family history of malignant neoplasm, unspecified; Z83.3 Family history of diabetes mellitus; Z86.718 Personal history of other venous thrombosis and embolism
CPT/HCPCS: 36415; 36600; 71045; 80048; 80053; 81001; 82728; 82805; 83540; 83550; 83605; 83615; 83735; 84443; 84484; 85007; 85025; 85027; 85379; 86141; 86850; 86900; 86901; 87040; 87081; 87426; 87804; 93005; 93970; 94640; 96365; 96372; 99291; G0378; J0696; J1100

== ENCOUNTER → 2021-02-03 | Outpatient (CLI) | payer MEDICARE ==
[~2021-02-03] MED LIST changes: +AMLO-489 PO; -AMLO5TAB15 PO
[2021-02-03 11:54] LABS: Basophils # (auto) 0 10 ^3/uL (0-0.2); Basophils % (auto) 0.6 % (0.0-2.0); Eosinophils # (auto) 0.2 10 ^3/uL (0-0.8); Eosinophils % (auto) 3.6 % (0.0-7.0); Hematocrit 38.8 % (36.0-46.0); Hemoglobin 12.6 g/dL (12.2-16.2); Lymphocytes % (auto) 31.5 % (10.0-50.0); Mean Corpuscular Hgb Conc. 32.5 g/dL (32.0-36.0); Mean Corpuscular Volume 86.2 fL (80.0-100.0); Monocytes # (auto) 0.6 10 ^3/uL (0-1.3); Neutrophils # (auto) 3.4 10 ^3/uL (1.6-8.6); Neutrophils % (auto) 55.3 % (37.0-80.0); Nucleated Red Blood Cells % 0.1 %; Platelet Count (auto) 365 10^3/uL (140-450); Red Cell Distribution Width 16.4 % (11.8-14.3); White Blood Cell 6.2 10^3/uL (4.4-10.8)
[2021-02-03 11:57] LABS: Urine Blood Negative /uL (Negative); Urine Specific Gravity 1.008 (1.001-1.035)
== END | disposition home or self-care (01) ==
LOC: LAB 11:18
PROVIDERS: ATTEND Internal Medicine
DX: N39.0 Urinary tract infection, site not specified (principal); D64.9 Anemia, unspecified
CPT/HCPCS: 36415; 81003; 85025

== ENCOUNTER → 2022-03-22 | Outpatient (CLI) | payer MEDICARE ==
[~2022-03-22] MED LIST changes: +CYCL-839 PO; -CYCL10TA6 PO; +MONT-8 PO; -MONT10TA34 PO
[2022-03-22 10:17] LABS: Basophils # (auto) 0.1 10 ^3/uL (0-0.2); Basophils % (auto) 0.6 % (0.0-2.0); Eosinophils # (auto) 0.3 10 ^3/uL (0-0.8); Eosinophils % (auto) 3.6 % (0.0-7.0); Hematocrit 39.7 % (36.0-46.0); Lymphocytes # (auto) 2.1 10 ^3/uL (0.4-5.4); Lymphocytes % (auto) 24.8 % (10.0-50.0); Mean Corpuscular Hemoglobin 28.6 pg (28.0-32.0); Mean Corpuscular Hgb Conc. 32.8 g/dL (32.0-36.0); Monocytes # (auto) 0.8 10 ^3/uL (0-1.3); Monocytes % (auto) 9.4 % (0.0-12.0); Neutrophils # (auto) 5.1 10 ^3/uL (1.6-8.6); Neutrophils % (auto) 61.6 % (37.0-80.0); Nucleated Red Blood Cells % 0.1 %; Red Blood Cells 4.56 10^6/uL (4.0-5.20); Red Cell Distribution Width 14.1 % (11.8-14.3); White Blood Cell 8.3 10^3/uL (4.4-10.8)
[2022-03-22 10:30] LABS: Urine Blood Negative /uL (Negative); Urine Specific Gravity 1.019 (1.001-1.035)
[2022-03-22 10:36] LABS: Potassium 4.3 mmol/L (3.5-5.1)
[2022-03-22 10:47] LABS: Albumin 3.6 g/dL (3.4-5.0); BUN/Creatinine Ratio 24.4; Bilirubin, Total 0.3 mg/dL (0.2-1.0); Calcium 9.2 mg/dL (8.5-10.1); Total Protein 7.1 g/dL (6.4-8.2)
[2022-03-22 10:51] LABS: Free T4 (Free Thyroxine) 1.12 ng/dL (0.89-1.76)
== END | disposition home or self-care (01) ==
LOC: LAB 08:06
PROVIDERS: ATTEND Internal Medicine
DX: D51.3 Other dietary vitamin B12 deficiency anemia (principal); D64.9 Anemia, unspecified; E11.9 Type 2 diabetes mellitus without complications; E55.9 Vitamin D deficiency, unspecified; I10 Essential (primary) hypertension; R00.2 Palpitations; R53.1 Weakness; R30.0 Dysuria
CPT/HCPCS: 36415; 80053; 80061; 81003; 82306; 82607; 83036; 84439; 84443; 85025

== ENCOUNTER → 2022-04-21 | Outpatient (CLI) | payer MEDICARE | END | disposition home or self-care (01) | LOC: Rad HDHVI 10:07 | PROVIDERS: ATTEND Internal Medicine | DX: Z01.818 Encounter for other preprocedural examination (principal); R07.9 Chest pain, unspecified | CPT/HCPCS: 71046 ==

== ENCOUNTER → 2022-04-26 | Outpatient (CLI) | payer MEDICARE | END | disposition home or self-care (01) | LOC: Rad HDHVI 13:46 | PROVIDERS: ATTEND Internal Medicine | DX: I07.1 Rheumatic tricuspid insufficiency (principal); I10 Essential (primary) hypertension; E78.5 Hyperlipidemia, unspecified | CPT/HCPCS: 93306 ==

== ENCOUNTER → 2022-09-28 | Outpatient (CLI) | payer MEDICARE | END | disposition home or self-care (01) | LOC: LAB 09:42 | PROVIDERS: ATTEND Internal Medicine | DX: E03.9 Hypothyroidism, unspecified (principal) | CPT/HCPCS: 36415; 84439; 84443 ==

== ENCOUNTER → 2022-11-22 | Outpatient (CLI) | payer MEDICARE | END | disposition home or self-care (01) | LOC: LAB 09:57 | PROVIDERS: ATTEND Internal Medicine | DX: E03.9 Hypothyroidism, unspecified (principal) | CPT/HCPCS: 36415; 84439; 84443 ==

== ENCOUNTER → 2023-04-20 | Outpatient (CLI) | payer MEDICARE ==
[~2023-04-20] MED LIST changes: -AMLO-489 PO; +AMLO1TAB22 PO; -DULO60CA PO; +DULO60CA41 PO
== END | disposition home or self-care (01) ==
LOC: Rad HDHVI 14:52
PROVIDERS: ATTEND Internal Medicine Cardiovascular Disease
DX: I08.2 Rheumatic disorders of both aortic and tricuspid valves (principal); I10 Essential (primary) hypertension; E78.5 Hyperlipidemia, unspecified
CPT/HCPCS: 93306

== ENCOUNTER → 2023-05-07 | Outpatient (CLI) | payer MEDICARE ==
[~2023-05-07] VITALS: Ht 167.6 cm; Wt 80.3 kg
== END | disposition home or self-care (01) ==
LOC: Rad HDHVI 14:12
PROVIDERS: ATTEND Internal Medicine Cardiovascular Disease
DX: I10 Essential (primary) hypertension (principal); R07.89 Other chest pain; R06.02 Shortness of breath; E78.00 Pure hypercholesterolemia, unspecified; J45.909 Unspecified asthma, uncomplicated; Z82.49 Family history of ischemic heart disease and other diseases of the circulatory system
CPT/HCPCS: 78452; 93017; 96374; A9500

== ENCOUNTER → 2023-12-11 | Outpatient (CLI) | payer OTHER ==
[2023-12-11 11:35] LABS: Basophils # (auto) 0 10 ^3/uL (0-0.2); Basophils % (auto) 0.5 % (0.0-2.0); Eosinophils # (auto) 0.3 10 ^3/uL (0-0.8); Eosinophils % (auto) 3.3 % (0.0-7.0); Hematocrit 41.6 % (36.0-46.0); Hemoglobin 13.6 g/dL (12.2-16.2); Lymphocytes % (auto) 12.5 % (10.0-50.0); Mean Corpuscular Hemoglobin 28.7 pg (28.0-32.0); Mean Corpuscular Hgb Conc. 32.7 g/dL (32.0-36.0); Mean Corpuscular Volume 87.6 fL (80.0-100.0); Monocytes # (auto) 0.7 10 ^3/uL (0-1.3); Monocytes % (auto) 8.4 % (0.0-12.0); Neutrophils # (auto) 6.1 10 ^3/uL (1.6-8.6); Neutrophils % (auto) 75.3 % (37.0-80.0); Red Blood Cells 4.75 10^6/uL (4.0-5.20); Red Cell Distribution Width 13.5 % (11.8-14.3); White Blood Cell 8.1 10^3/uL (4.4-10.8)
[2023-12-11 12:33] LABS: Alanine Aminotransferase 25 U/L (7-40); Alkaline Phosphatase 94 U/L (46-116); Anion Gap 5 (5-15); BUN/Creatinine Ratio 16.5 (10.0-20.0); Blood Urea Nitrogen 13 mg/dL (9-23); Carbon Dioxide 31 mmol/L (20-30); Chloride 103 mmol/L (98-107); Glucose 81 mg/dL (74-106); Potassium 4.4 mmol/L (3.5-5.1); Sodium 139 mmol/L (136-145); Triglycerides 125 mg/dL (< 150)
[2023-12-11 12:34] LABS: LDL Cholesterol 93 mg/dL (< 100)
[2023-12-11 12:35] LABS: Albumin 4.6 g/dL (3.2-4.8); Aspartate Aminotransferase 18 U/L (13-40); Bilirubin, Total 0.4 mg/dL (0.2-1.0); Cholesterol 170 mg/dL (< 200); HDL Cholesterol 55 mg/dL (40-59)
[2023-12-11 12:36] LABS: Total Protein 7.3 g/dL (5.7-8.2)
[2023-12-11 14:08] LABS: Free T4 (Free Thyroxine) 1.57 ng/dL (0.89-1.76)
== END | disposition home or self-care (01) ==
LOC: LAB 10:22
DX: I10 Essential (primary) hypertension (principal); E03.9 Hypothyroidism, unspecified; K21.9 Gastro-esophageal reflux disease without esophagitis; R73.03 Prediabetes; E55.9 Vitamin D deficiency, unspecified
CPT/HCPCS: 36415; 80053; 80061; 82043; 82306; 82607; 83036; 84439; 84443; 85025

== ENCOUNTER → 2024-09-12 | Outpatient (CLI) | payer OTHER | END | disposition home or self-care (01) | LOC: LAB 10:09 | PROVIDERS: ATTEND Nurse Practitioner Family | DX: E03.9 Hypothyroidism, unspecified (principal) | CPT/HCPCS: 36415; 84439; 84443 ==

== ENCOUNTER → 2025-02-17 | Outpatient (CLI) | payer OTHER | END | disposition home or self-care (01) | LOC: LAB 12:46 | PROVIDERS: ATTEND Nurse Practitioner Family | DX: E03.9 Hypothyroidism, unspecified (principal) | CPT/HCPCS: 36415; 84443 ==

== ENCOUNTER 2025-02-27 09:53 | Day surgery (SDC) | payer OTHER ==
[2025-02-24 11:13] LABS: Urine Bacteria None Seen /hpf (None Seen)
[2025-02-24 11:16] LABS: Basophils # (auto) 0.1 10 ^3/uL (0-0.2); Basophils % (auto) 0.9 % (0.0-2.0); Eosinophils # (auto) 0.2 10 ^3/uL (0-0.8); Eosinophils % (auto) 2.3 % (0.0-7.0); Hematocrit 38.3 % (36.0-46.0); Hemoglobin 12.8 g/dL (12.2-16.2); Lymphocytes # (auto) 1.5 10 ^3/uL (0.4-5.4); Lymphocytes % (auto) 18.5 % (10.0-50.0); Mean Corpuscular Hemoglobin 29.5 pg (28.0-32.0); Mean Corpuscular Hgb Conc. 33.3 g/dL (32.0-36.0); Mean Corpuscular Volume 88.3 fL (80.0-100.0); Monocytes # (auto) 0.7 10 ^3/uL (0-1.3); Neutrophils # (auto) 5.6 10 ^3/uL (1.6-8.6); Neutrophils % (auto) 69.3 % (37.0-80.0); Platelet Count (auto) 336 10^3/uL (140-450); Red Blood Cells 4.33 10^6/uL (4.0-5.20); Red Cell Distribution Width 14.1 % (11.8-14.3); White Blood Cell 8.1 10^3/uL (4.4-10.8)
[2025-02-24 11:26] LABS: Urine Blood Negative /uL (Negative); Urine Clarity Clear (Clear); Urine Color Light-Yellow (Yellow); Urine Protein, UAD Negative (Negative); Urine Specific Gravity 1.015 (1.001-1.035); Urine Squamous Epithelial Cell FEW /hpf (<5); Urine Urobilinogen Normal (Negative); Urine WBC 2 /HPF (0-5)
[2025-02-24 11:34] LABS: INR 0.97 (0.9-1.15); Prothrombin Time 10.3 sec (9.3-11.8)
[2025-02-24 11:46] LABS: Alanine Aminotransferase 25 U/L (7-40); Alkaline Phosphatase 88 U/L (46-116); Carbon Dioxide 30 mmol/L (20-31); Chloride 103 mmol/L (98-107)
[2025-02-24 11:47] LABS: Albumin 4.6 g/dL (3.2-4.8); Anion Gap 5 (5-15); Aspartate Aminotransferase 15 U/L (13-40); BUN/Creatinine Ratio 21.7 (10.0-20.0); Bilirubin, Total 0.4 mg/dL (0.2-1.0); Blood Urea Nitrogen 18 mg/dL (9-23); Glucose 91 mg/dL (74-106); Potassium 4.3 mmol/L (3.5-5.1); Sodium 138 mmol/L (136-145)
[~2025-02-27] VITALS: Ht 167.6 cm; Wt 87.5 kg
[~2025-02-27 09:53] MED LIST changes: -ALBU108A5 IN; +ALBUAER3 IN; +ASCO100076 PO; -ASPI81CH59 PO; -ATOR20TA50 PO; +BUSP10TA31 PO; -FER325T PO; -LANS30CA57 PO; -LEVO125T7 PO; +LEVO175T4 PO; +MAGN400C3 PO; +OLAN2.5T38 PO; +PANT40T PO; +ZINC100T2 PO
[2025-02-27] MEDS ORDERED: PROPOFOL 10 MG/ML 20 ML IV ONE ×2 (12:34→12:46)
[2025-02-27] MEDS ORDERED: LIDOCAINE 2% (LOCAL ANESTH.) PF 5ml SDV ONE (12:34)
[2025-02-27 13:55] VITALS: BP 136/83; PULSE 71; RESP 10; O2SAT 95
--- NOTE | 2025-02-27 17:14 | DVHOP2 ---
Operative Report DATE OF OPERATION: 02/27/25 PROCEDURE: Upper Endoscopy with biopsy. PREOPERATIVE INDICATION: The patient is a 70 -year-old female undergoing endoscopy for chronic GERD POSTOPERATIVE DIAGNOSES: 1. Patient had a 3 cm sliding-type hiatal hernia with acute grade B erosive esophagitis and whitish yellowish plaques in the distal and proximal esophagus suspicious for Candidiasis from which biopsies were obtained 2. She had a mild gastritis otherwise normal examination up to the 2nd and 3rd part of the duodenum PROCEDURE PERFORMED BY: Meghna Patel GI NURSE: Kalie SCOPE: Olympus videoendoscope. ASA CLASS: 3 PREOPERATIVE MEDICATIONS: Mac sedation; Rustam Lowry PROCEDURE IN DETAIL: After obtaining an informed consent, the patient was placed on left lateral decubitus position. The patient was then sedated with the above medications. A bite block was placed between her teeth. The endoscope was then passed through the oropharynx, into the esophagus, and through the stomach and pylorus up to the second and third part of the duodenum. The endoscope was then withdrawn. The 2nd and 3rd part of the duodenum and the duodenal bulb were normal. Duodenal biopsies were obtained. The pre-pyloric area antrum and body showed mild gastritis with some hyperemia erythema. Gastric biopsies were obtained. On retroflexion the fundus cardia and angularis were normal. The endoscope was then withdrawn into distal esophagus. Patient had a 2-3 cm sliding-type hiatal hernia with irregular squamocolumnar junction grade B erosive esophagitis. There were also yellowish whitish plaques in the distal esophagus and also some in the proximal esophagus suspicious for Yani from which biopsies were obtained. The patient tolerated the procedure well without difficulty. COMPLICATIONS : None SPECIMENS: Duodenal biopsies Gastric biopsies Esophageal biopsies DISPOSITION: Stable D/C to home PLAN: 1. Await for biopsy result 2. Will place pt on Protonix 40 mg p.o. daily 3. Carafate suspension 1 g p.o. twice a day 4. Trial of nystatin swish and swallow 5 mL p.o. three times a day for 10 days 5. Resume GI soft diet advance as tolerated 6. Outpatient follow up with me in 4-6 weeks to review results and discuss further management MEGHNA PATEL MD Feb 27, 2025 17:14
--- NOTE | 2025-02-27 17:19 | DVHOP2 ---
Operative Report DATE OF OPERATION: 02/27/25 PROCEDURE: Colonoscopy with cold biopsy polypectomy. PREOPERATIVE INDICATION: The patient is a 70 -year-old female undergoing colonoscopy for evaluation of change in bowel habits and colon cancer screening POSTOPERATIVE DIAGNOSES: 1. The patient had two diminutive 1-2 mm benign-appearing transverse colon polyps were seen and removed by cold biopsy forceps 2. The patient had a very limited study due to large amount of thick residual stool present throughout the colon 3. Patient had a long redundant and tortuous colon especially involving the sigmoid colon and splenic flexure 3. Trace to 1+ internal hemorrhoids otherwise grossly normal examination up to the cecum but with inadequate visualization PROCEDURE PERFORMED BY: Meghna Patel M.D. SCOPE: Olympus videocolonoscope. ASA CLASS: 3 PREOPERATIVE MEDICATIONS: Mac sedation, Rustam Lowry PROCEDURE IN DETAIL: After obtaining an informed consent, the patient was placed on left lateral decubitus position. She was then sedated with the above medications. A rectal examination was performed that was normal. The colonoscope was then passed through the anus into the rectosigmoid and through the descending, transverse, and ascending colon up to the cecum with visualization of the appendiceal orifice, base of the cecum and the ileocecal valve. The colonoscope was then withdrawn. No masses or colitis was noted The study was very limited due to large amount of thick residual liquid stool present throughout the colon especially at the flexures. There were two small 1-2 mm benign-appearing transverse colon polyps were seen and visualized removed by cold biopsy forceps Patient had a long redundant and tortuous colon especially involving the sigmoid and the splenic flexure area On retroflexion and straight on view the patient had 1+ internal hemorrhoids The patient tolerated the procedure well without difficulty. WITHDRAWAL TIME: 6 minute QUALITY OF THE PREP: [place] Bowel Prep score: 5-6 COMPLICATIONS : None SPECIMENS: Transverse colon polyps DISPOSITION: Stable D/C to home PLAN: 1. Repeat colonoscopy in near future with better two day bowel prep under MAC 2. Resume GI soft diet advance as tolerated 3. Outpatient follow up with me in 2-4 weeks to review results and discuss further management MEGHNA PATEL MD Feb 27, 2025 17:19
== END 2025-02-27 13:59 | disposition home or self-care (01) ==
LOC: GI 09:53
PROVIDERS: ATTEND Internal Medicine Gastroenterology
DX: R19.4 Change in bowel habit (principal); D12.3 Benign neoplasm of transverse colon; K31.7 Polyp of stomach and duodenum; K22.89 Other specified disease of esophagus; K29.50 Unspecified chronic gastritis without bleeding; K21.00 Gastro-esophageal reflux disease with esophagitis, without bleeding; K44.9 Diaphragmatic hernia without obstruction or gangrene; K31.89 Other diseases of stomach and duodenum; K64.8 Other hemorrhoids; F32.A Depression, unspecified; F41.9 Anxiety disorder, unspecified; I10 Essential (primary) hypertension; J45.909 Unspecified asthma, uncomplicated; E66.01 Morbid (severe) obesity due to excess calories; M79.7 Fibromyalgia; Z90.49 Acquired absence of other specified parts of digestive tract; Z79.899 Other long term (current) drug therapy; Z87.891 Personal history of nicotine dependence
CPT/HCPCS: 36415; 43239; 45380; 80053; 81001; 85025; 85610; 85730; 88305; 88312; 88342; J2003; J2704; J7030

== ENCOUNTER 2025-05-07 10:37 | Outpatient (CLI) | payer OTHER | END 2025-05-07 17:00 | disposition home or self-care (01) | LOC: LAB 10:37 | PROVIDERS: ATTEND Nurse Practitioner Family | DX: E03.9 Hypothyroidism, unspecified (principal) | CPT/HCPCS: 36415; 84439; 84443 ==

== ENCOUNTER → 2025-06-16 | Outpatient (CLI) | payer OTHER | END | disposition home or self-care (01) | LOC: LAB 12:28 | PROVIDERS: ATTEND Internal Medicine | DX: E03.9 Hypothyroidism, unspecified (principal) | CPT/HCPCS: 36415; 84439; 84443 ==

== ENCOUNTER 2025-07-09 13:31 | Outpatient (CLI) | payer OTHER | END 2025-07-09 17:00 | disposition home or self-care (01) | LOC: LAB 13:31 | PROVIDERS: ATTEND Internal Medicine | DX: E03.9 Hypothyroidism, unspecified (principal) | CPT/HCPCS: 36415; 84439; 84443 ==

== ENCOUNTER 2025-08-13 11:35 | Outpatient (CLI) | payer OTHER | END 2025-08-13 17:00 | disposition home or self-care (01) | LOC: LAB 11:35 | PROVIDERS: ATTEND Nurse Practitioner Family | DX: E03.9 Hypothyroidism, unspecified (principal) | CPT/HCPCS: 36415; 84443 ==

== ENCOUNTER 2025-10-30 13:32 | Outpatient (CLI) | payer OTHER ==
[2025-10-30 14:42] LABS: Free T4 (Free Thyroxine) 1.43 ng/dL (0.89-1.76)
== END 2025-10-30 17:00 | disposition home or self-care (01) ==
LOC: LAB 13:32
PROVIDERS: ATTEND Nurse Practitioner Family
DX: E03.9 Hypothyroidism, unspecified (principal)
CPT/HCPCS: 36415; 84439; 84443; 84480